=== PATIENT | male | born 1960 | race Hispanic/Latino ===

== ENCOUNTER 2018-09-14 16:17 | Outpatient (CLI) | payer BC ==
[2018-09-14 17:06] LABS: #Eosinphils 0.2 thou/uL (0.0-0.7); #Lymphocytes 2.2 thou/uL (1.20-3.40); #Monocytes 0.4 thou/uL (0.11-0.59); #Neutrophils 3.1 thou/uL (1.40-6.50); %Basophils 0.7 % (0.0-1.0); %Eosinophils 3.4 % (0.0-10.0); %Lymphocytes 36.5 % (21.0-51.0); %Monocytes 7.1 % (0.0-10.0); %Neutrophils 52.3 % (42.0-75.0); Hemoglobin 14.4 g/dL (14.0-18.0); Mean Corpuscular Hemoglobin 29.5 pg (27.0-31.0); Mean Corpuscular Volume 89.2 fL (78.0-98.0); Mean Platelet Volume 9.2 fL (7.4-10.4); Platelet Count 201 thou/uL (130-400); RBC Distribution Width 11.9 % (11.5-14.5); White Blood Cell (WBC) Count 5.9 thou/uL (4.8-10.8)
[2018-09-14 17:33] LABS: Anion Gap 12 mmol/L (10-20); BUN (Urea Nitrogen) 16 mg/dL (8.4-25.7); Calc. Creatinine Clearance 0 mL/min (70-130); Calcium 9.4 mg/dL (7.8-10.44); Carbon Dioxide 27 mmol/L (22-29); Chloride 105 mmol/L (98-107); Estimated GFR-MDRD 77; Glucose 91 mg/dL (70-105); Potassium 4.7 mmol/L (3.5-5.1); Sodium 139 mmol/L (136-145)
== END 2018-09-14 16:18 | disposition home or self-care (01) ==
LOC: LABBT 16:17
PROVIDERS: ATTEND Surgery
DX: Z01.812 Encounter for preprocedural laboratory examination (principal); K42.0 Umbilical hernia with obstruction, without gangrene
CPT/HCPCS: 80048; 85025

== ENCOUNTER 2018-09-16 06:43 | Day surgery (SDC) | payer BC ==
[2018-09-09 11:20] VITALS: BMI 33.3
[2018-09-16] MEDS ORDERED: CEFAZOLIN 2 GM/50 ML BAG ONE (09:42)
[2018-09-16] MEDS ORDERED: Bupivacaine/Epinephrine 0.25% 30 ML VIAL ONE (10:07)
[2018-09-16] MEDS ORDERED: Fentanyl 100 MCG/2 ML VIAL ONE (10:08)
[2018-09-16] MEDS ORDERED: Morphine 4 MG/ML VIAL ONE (11:40)
[2018-09-16] MEDS ORDERED: Morphine 2 MG/ML SYRINGE ONE (11:52)
[2018-09-16] MEDS ORDERED: HYDROcodone/Acetaminophen 5/325 mg Tablet ONE (13:30)
[2018-09-16] MEDS ORDERED: Succinylcholine Chloride 20 MG/ML 10 ml SYRINGE FS ONE (14:24)
[2018-09-16] MEDS ORDERED: Lidocaine 1% PF 5 ML VIAL ONE (14:24)
[2018-09-16] MEDS ORDERED: Labetalol HCl 100 MG/20 ML VIAL ONE (14:24)
[2018-09-16] MEDS ORDERED: PHENYLEPHRINE-NS 100 MCG/ML 10 ML SYRINGE ONE (14:24)
[2018-09-16] MEDS ORDERED: Ondansetron PF 4 MG/2 ML Vial ONE (14:24)
[2018-09-16] MEDS ORDERED: Ketorolac Tromethamine 30 MG/ML VIAL ONE (14:24)
[2018-09-16] MEDS ORDERED: PROPOFOL 200 MG/20 ML VIAL ONE (14:24)
--- NOTE | 2018-09-19 11:53 | OP ---
PROCEDURE PERFORMED: Repair of incarcerated umbilical hernia with mesh. PREOPERATIVE DIAGNOSIS: Incarcerated umbilical hernia. POSTOPERATIVE DIAGNOSIS: Incarcerated umbilical hernia. HISTORY: with longstanding incarcerated umbilical hernia. He does have irritation and cellulit is of the overlying skin, which was successfully treated with antibiotis. [facility]. DESCRIPTION OF PROCEDURE: chronically incarcerated and protruded nature of the hernia defect a nd an ellipse of overlying skin was excised with the hernia to allow the wound to be closed flat. Th e hernia sac was dissected out circumferentially. The overlying skin was excised off of the hernia s ac. Using gentle compression, the contents of the hernia sac were able to be slowly reduced into the abdominal cavity and the hernia sac which was intact was placed through the fascial defect. A space was then created in the preperitoneal location using a combination of blunt dissection and electroca utery as necessary. The hernia defect measured 2 cm in size and the preperitoneal space was cleared for 2 or 3 cm circumferentially. A Ventralex mesh was then placed into the preperitoneal space and confirmed to be lying flat . The fascial defect was closed with permanent braided sutures incorporating the strap into the closure with excellent technical result. The excess strap material and subcu tissues reapproximated over strap. The wound was irrigated and hemostasis verified . Additional local anesthesia was induced circumferentially. The skin was closed with a running 4-0 subcuticular Monocryl suture and Dermabond dressings were placed. Once the Dermabond was dry placed into the umbilicus to create a compression dressing. The patient was extubated and taken to [facility] recovery room in good condition. Estimated blood loss was minimal. There were no complications. There were no specimens.
== END 2018-09-16 14:50 | disposition home or self-care (01) ==
LOC: SDC 06:43
PROVIDERS: ATTEND Surgery
PROC: 0WUF0JZ Supplement Abdominal Wall with Synthetic Substitute, Open Approach (ICD-10-PCS; principal; 2018-09-16)
DX: K42.0 Umbilical hernia with obstruction, without gangrene (principal); E88.81 Metabolic syndrome and other insulin resistance; K21.9 Gastro-esophageal reflux disease without esophagitis; Z79.2 Long term (current) use of antibiotics; Z79.899 Other long term (current) drug therapy
CPT/HCPCS: 96374; J1885; J2001; J2270; J2405; J2704; J3010